=== PATIENT | female | born 1985 | race Caucasian/White ===

== ENCOUNTER 2019-08-07 22:43 | Emergency (ER) | payer OTHER ==
[~2019-08-07] VITALS: Ht 167.6 cm; Wt 63.5 kg
[2019-08-07 23:29] VITALS: BP 160/128
[2019-08-07] MEDS ORDERED: PROZAC40 MG PO (23:33)
[2019-08-07] MEDS ORDERED: NUVIGIL250 MG PO (23:34)
== END 2019-08-08 00:02 | disposition left against medical advice (07) ==
LOC: M.ERS 22:43
DX: Z53.21 Procedure and treatment not carried out due to patient leaving prior to being seen by health care provider (principal)

== ENCOUNTER 2019-11-25 23:56 | Emergency (ER) | payer OTHER ==
[~2019-11-25] VITALS: Ht 167.6 cm; Wt 74.8 kg
[~2019-11-25 23:56] MED LIST: NUVIGIL250 MG PO; PROZAC40 MG PO
[2019-11-26] MEDS ORDERED: NORCO 5-325 TA1 EAC1 PO (00:16)
[2019-11-26 01:13] VITALS: BP 146/86
== END 2019-11-26 01:13 | disposition home or self-care (01) ==
LOC: M.ERS 23:56
DX: S52.121A Displaced fracture of head of right radius, initial encounter for closed fracture (principal); S50.01XA Contusion of right elbow, initial encounter; Z87.442 Personal history of urinary calculi; W18.39XA Other fall on same level, initial encounter; Y93.51 Activity, roller skating (inline) and skateboarding; Y92.89 Other specified places as the place of occurrence of the external cause; Y99.8 Other external cause status

== ENCOUNTER 2019-11-29 18:03 | Emergency (ER) | payer OTHER ==
[~2019-11-29] VITALS: Ht 167.6 cm; Wt 72.6 kg
[~2019-11-29 18:03] MED LIST changes: +NORCO 5-325 TA1 EAC1 PO
[2019-11-29] MEDS ORDERED: NORCO 5-325 TA1 EAC1 PO (20:02)
[2019-11-29] MEDS ORDERED: IBUPROFEN 800800 M1 PO (20:02)
[2019-11-29 20:21] VITALS: BP 195/123
== END 2019-11-29 20:22 | disposition home or self-care (01) ==
LOC: M.ERS 18:03
DX: S52.124A Nondisplaced fracture of head of right radius, initial encounter for closed fracture (principal); M25.421 Effusion, right elbow; Z87.442 Personal history of urinary calculi; W18.39XA Other fall on same level, initial encounter; Y93.21 Activity, ice skating; Y92.89 Other specified places as the place of occurrence of the external cause; Y99.8 Other external cause status